=== PATIENT | female | born 1980 | race Hispanic/Latino ===

== ENCOUNTER 2017-03-20 03:25 | Inpatient (IN) | payer OTHER ==
[~2017-03-20] VITALS: Ht 157.5 cm; Wt 80.7 kg
[~2017-03-20 03:25] MED LIST: SYNTHROID137 MCG PO
--- NOTE | 2017-03-20 07:48 | History & Physical Pre-Op ---
General Information and HPI History of Present Illness: This patient is a 37-year-old 3 para 3 with known fibroid uterus causing pelvic pain and menorrhagia since today for subtotal hysterectomy. Allergies/Medications Allergies: Coded Allergies: NO KNOWN ALLERGIES (10/29/11) NKA PER ANTIBIOTIC ORDER SHEET - [facility] Home Med list Levothyroxine Sodium (Synthroid) 137 MCG TABLET 1 TAB PO DAILY THYROID ( Reported) Past History Medical History Cancer(s): thyroid cancer Surgical History Pertinent Surgical History: tubal ligation, thyroidectomy Past Family/Social History Psychosocial History Services at Home None Review of Systems Review of Systems Constitutional: Reports: no symptoms. EENTM: Reports: no symptoms. Cardiovascular: Reports: no symptoms. Respiratory: Reports: no symptoms. GI: Reports: no symptoms, abdominal pain. Genitourinary: Reports: see HPI. Musculoskeletal: Reports: no symptoms. Skin: Reports: no symptoms. Neurological/Psychological: Reports: no symptoms. Hematologic/Endocrine: Reports: no symptoms. Immunologic/Allergic: Reports: no symptoms. All Other Systems: Reviewed and Negative Exam & Diagnostic Data Physical Exam: HEENT: Normocephalic atraumatic Chest clear to auscultation bilaterally Cardiovascular: Normal S1, S2 Abdomen: Soft, nontender, nondistended Pelvic: Deferred to the OR Extremities: No clubbing, cyanosis, or edema Neurologic: Nonfocal Assessment/Plan Assessment/Plan: Fibroid uterus Plan: Subtotal hysterectomy As Ranked By This Provider Problem List: 1. Fibroid uterus
[2017-03-20 14:00] VITALS: BP 122/80
[2017-03-20 16:00] VITALS: BP 126/82
--- NOTE | 2017-03-20 17:14 | Operative Report ---
Operative/Inv Procedure Report Surgery Date: 03/20/17 Name of Procedure: cystoscopy: bilateral stent insertion Pre-Operative Diagnosis: fibroids Post-Operative Diagnosis: same Estimated Blood Loss: scant Surgeon/Commercial Truck Driver: MD SOLER ARNOLD-UROLOGY Anesthesia: general endotracheal tube Drains: 16 FR GOSS Specimens: UCX Complications: NONE Operative/Procedure Note Note: The patient was taken to the operating room and placed on the OR table in supine position. Timeout was performed, with the patient awake, to confirm identify, planned procedures, anesthesia, antibiotics and other pertinent curtis-operative information. After adequate anesthesia, and IV antibiotics, the patient was placed in lithotomy Yellow-fin stirrups. She was then draped and prepped in the usual surgical fashion, including a vaginal prep. A 22 Gambian cystoscope sheath with a 30 angle lens was inserted into the bladder without significant difficulty. The bladder was thoroughly and systematically examined, and was noted to be free of tumor, free of stone, free of endometriosis. Both ureteral orifices were in their orthotopic positions with clear reflux bilaterally. Under direct visualization the left orifice was intubated with a 5 Gambian whistle-tip catheter, which was advanced easily into the left kidney pelvis. The right ureteral orifice was intubated with a second 5 Gambian ureteral whistle tip catheter, and advanced into the right renal pelvis without difficulty. For identification purposes the blue marked stent went into the left kidney and the right ureteral stent was marked red. Urine culture was obtained and sent to pathology. The cystoscope was then removed leaving both stents in proper place. An 18 Gambian Goss catheter was inserted draining clear fluid and 10 mL of sterile water was then placed in the balloon. The ends ureteral stents, which protruded externally, were taped to the Goss catheter in order to secure their position. The individual ureteral stents were then connected to their individual drainage devices. The patient tolerated the procedure well. All sponge needle and instrument count were correct at the end of this procedure. The patient was then placed in supine position with Venodyne's in place. At this point, Dr.Vander Beavers was able to proceed with the patient's surgery. Findings: NORMAL BLADDER Discharge Disposition: PROCEED WITH DR. MARIE Additional Comments: BILATERAL STENTS TO BE REMOVED BY DR. MARIE AT END OF SURGERY CC: EUNICE SOLER MD
[2017-03-20 18:40] VITALS: BP 124/80
--- NOTE | 2017-03-20 19:48 | NUR ---
LATE ENTRY: PATIENT ARRIVED TO FLOOR AT 1400 FROM PACU VIA STRETCHER ACCOMPANIED BY DISTRIBUTION; PATIENT A/OX3; RA; VSS (SEE CHARTING); PAIN 10/10; DILAUDID INFORMATION TECHNOLOGY AUDIT MANAGER DEMAN DOSE IN PLACE; IV FLUIDS RUNNING PER ORDER; ABD BINDER IN PLACE; ALPS ON; IST AT THE BEDSIDE; PATIENT SETTLED INTO ROOM, CALL DIAZ IN REACH;
[2017-03-20 20:06] VITALS: BP 122/72
[2017-03-20 20:40] LABS: ABSOLUTE BASOPHIL COUNT 0 /CUMM (0.0-0.2); ABSOLUTE EOSINOPHIL COUNT 0 /CUMM (0.0-0.7); ABSOLUTE GRANULOCYTE CT 8.3 /CUMM (1.4-6.5); ABSOLUTE LYMPH COUNT 0.9 /CUMM (1.2-3.4); ABSOLUTE MONOCYTE COUNT 0.5 /CUMM (0.10-0.60); BASOPHIL % 0.1 % (0.0-2.0); EOSINOPHIL % 0 % (0-5); MEAN CORPUSCULAR HGB 31.4 PG (27.0-31.0); MEAN CORPUSCULAR HGB CONC 34.1 G/DL (33.0-37.0); MEAN CORPUSCULAR VOLUME 92.1 FL (81.0-99.0); MEAN PLATELET VOLUME 8.1 FL (7.4-10.4); PLATELET COUNT 303 /CUMM (130-400); RBC DISTRIBUTION WIDTH 11.7 % (11.5-14.5); RED BLOOD CELL CT 3.91 /CUMM (4.20-5.40); WHITE BLOOD CELL COUNT 9.7 /CUMM (4.8-10.8)
[2017-03-20 20:45] LABS: GRANULOCYTE % 85.6 % (42.2-75.2)
[2017-03-20 22:57] VITALS: BP 120/62
[2017-03-21] VITALS: BP 120/72
[2017-03-21 02:09] VITALS: BP 120/62
[2017-03-21 04:00] VITALS: BP 100/54
[2017-03-21 06:51] VITALS: BP 122/74
[2017-03-21 07:52] LABS: ABSOLUTE BASOPHIL COUNT 0 /CUMM (0.0-0.2); ABSOLUTE EOSINOPHIL COUNT 0.1 /CUMM (0.0-0.7); ABSOLUTE GRANULOCYTE CT 5.5 /CUMM (1.4-6.5); ABSOLUTE LYMPH COUNT 2.1 /CUMM (1.2-3.4); ABSOLUTE MONOCYTE COUNT 0.8 /CUMM (0.10-0.60); BASOPHIL % 0.3 % (0.0-2.0); EOSINOPHIL % 0.8 % (0-5); GRANULOCYTE % 64.8 % (42.2-75.2); HEMATOCRIT 33.9 % (37-47); MEAN CORPUSCULAR HGB 31.5 PG (27.0-31.0); MEAN CORPUSCULAR VOLUME 92.6 FL (81.0-99.0); MEAN PLATELET VOLUME 8.4 FL (7.4-10.4); PLATELET COUNT 295 /CUMM (130-400); RED BLOOD CELL CT 3.66 /CUMM (4.20-5.40); WHITE BLOOD CELL COUNT 8.5 /CUMM (4.8-10.8)
[2017-03-21 14:11] VITALS: BP 116/60
[2017-03-21] MEDS ORDERED: PERCOCET 5-3251 EACH PO (22:03)
[2017-03-21] MEDS ORDERED: IBUPROFEN800 M1 PO (22:03)
[2017-03-21 22:23] VITALS: BP 118/70
[2017-03-22 06:22] VITALS: BP 110/62
--- NOTE | 2017-04-02 11:32 | Operative Report ---
Operative/Inv Procedure Report Surgery Date: 03/20/17 Name of Procedure: Subtotal Abdominal hysterectomy Pre-Operative Diagnosis: Fibroid uterus Post-Operative Diagnosis: Same Estimated Blood Loss: 50ml to 100ml Surgeon/Entry Level Lab Technician: NED SILVA MD,ALDAIR Oshea M.D. Anesthesia: general endotracheal tube Operative/Procedure Note Note: The patient was brought to the operating room placed on the OR table in the dorsal supine position. After adequate anesthesia the patient was successfully intubated. She underwent bilateral ureteral stent placement by Dr. Graham and attached block by anesthesia. Her abdomen was prepped and draped in usual sterile fashion. A Pfannenstiel skin incision was made with the scalpel and taken down to the layer of the fascia. Fascia was nicked in the midline and extended bilaterally. The underlying peritoneal lining was opened sharply and bilaterally. An O'Efren-O'Damon retractor was placed into the abdomen and the intestines were packed away using moistened laparotomy pads. A double-tooth tenaculum was attached fundus of the 16 week uterus and elevated throughout the case. A Angela clamp was placed on each adnexa. The right round ligament was isolated and tied off with 0 Polysorb and tagged. The same procedures repeated on the left. The broad ligament was then incised and taken down to the bladder flap and this was released from the lower uterine segment and cervix. A Kulwant clamp was used to take the right utero-ovarian ligament complex and this was tied off with 0 Polysorb in with good hemostasis. An avascular window was created in the left broad ligament and a Abby clamp was placed and clamped on the left utero ovarian ligament. This was transected and suture ligated with 0 Polysorb with good hemostasis. Bladder flap was again noted to be well away from the cervix and lower uterine segment. The right uterine artery was skeletonized and clamped with a Abby clamp transected and suture ligated with 0 Polysorb. Stasis was same procedure was repeated on the left good hemostasis as well. Anterior cardinal ligaments were then sequentially clamped transected and suture ligated with 0 Polysorb until the cervix was noted. Hemostasis was good. At this point the corpus of the uterus was transected including the upper cervix as well. This was sent to pathology. A reverse conization was performed in the remaining cervix. The base of the defect was coagulated and the cervix was closed upon itself using a running locking stitch of 0 Polysorb. All pedicles were noted to be hemostatic the pelvis was copiously irrigated. Hewas once again verified. Faiza coagulation power was placed on the surgical field and the instruments and laparotomy pads were removed. Fascia was closed using 0 Polysorb in a running nonlocking fashion. Subcutaneous tissues were irrigated and the skin was closed using familia. Dry sterile dressing was applied to the wound. The stents were removed. The patient was sent to recovery in good condition. All needle, sponge, and instrument counts are correct at the end of the procedure 2.
== END 2017-03-22 12:30 | DRG 519 ==
LOC: SDA 03:25 → 2NB 03:25 → ENRESERV 10:43 → ENTRNSPT 13:22 → EDTRNSPTSTS 13:43 → 2NB 14:03 → CMPTRNSPT 14:25 → ENPENDDIS 03-22 11:00 → 2NB 03-22 12:30
PROVIDERS: ADMIT Obstetrics & Gynecology
PROC: 0UBC0ZZ Excision of Cervix, Open Approach (ICD-10-PCS; principal; 2017-03-20)
PROC: 0UT90ZZ Resection of Uterus, Open Approach (ICD-10-PCS; principal; 2017-03-20)
PROC: 0T788DZ Dilation of Bilateral Ureters with Intraluminal Device, Via Natural or Artificial Opening Endoscopic (ICD-10-PCS; 2017-03-20)
PROC: 3E0T3CZ (ICD-10-PCS; 2017-03-20)
DX: D25.9 Leiomyoma of uterus, unspecified (principal); N92.0 Excessive and frequent menstruation with regular cycle; Z85.850 Personal history of malignant neoplasm of thyroid
CPT/HCPCS: 2NBP; 36415; 81025; 87086; 88307; C9399; J0131; J0694; J1170; J1200; J1885; J2405